=== PATIENT | male | born 1975 | race Hispanic/Latino ===

== ENCOUNTER 2017-03-18 22:31 | Emergency (ER) | payer OTHER ==
[~2017-03-18] VITALS: Ht 182.9 cm; Wt 104.1 kg
[~2017-03-18 22:31] MED LIST: AUGMENTIN875 MG PO; BENTYL20 MG PO; FLEXERIL10 MG PO; MOTRIN600 MG PO; OXYCODONE-APAP1 EACH PO; PERCOCET 10/1 TABLET PO; PERCOCET 5/31 TABLET PO; TRAMADOL HCL50 MG PO; ZANTAC150 MG PO; ZOFRAN ODT8 MG PO
[2017-03-19 00:18] VITALS: BP 132/97
== END 2017-03-19 00:20 | disposition home or self-care (01) ==
LOC: EME 22:31 → RME 22:31
DX: J06.9 Acute upper respiratory infection, unspecified (principal)
CPT/HCPCS: 71020; 99281; 99284

== ENCOUNTER → 2017-06-22 | Outpatient (CLI) | payer OTHER ==
[~2017-06-22] VITALS: Ht 180.3 cm; Wt 104.3 kg
== END | disposition home or self-care (01) ==
LOC: AMB 08:19
PROC: 0DB68ZX Excision of Stomach, Via Natural or Artificial Opening Endoscopic, Diagnostic (ICD-10-PCS; principal; 2017-06-22)
DX: K22.10 Ulcer of esophagus without bleeding (principal); K29.70 Gastritis, unspecified, without bleeding; K21.0 Gastro-esophageal reflux disease with esophagitis
CPT/HCPCS: 88305; 88342 TC; J3010